=== PATIENT | female | born 1965 | race Caucasian/White ===

== ENCOUNTER 2025-01-22 09:08 | Emergency (ER) | payer BC, SELFPAY ==
[2025-01-22 09:09] VITALS: BP 116/79
--- NOTE | 2025-01-22 09:43 | ED.GENMED ---
Addendum entered and electronically signed by Rey Warner PA-C 01/25/25 06:55:
UCx positive for 100k CFU E coli, sensitivity pending, pt on nitrofurantoin
Original Note:
History of Present Illness
General
Chief Complaint: Abdominal Pain
Source: patient
Exam Limitations: none
Time Seen by Provider: 01/22/25 09:41
Nursing documentation reviewed up to this point in time: agreed with
History of Present Illness
History of Present Illness:
60 yo female w h/o gastric bypass, was on Wagovy for 'months,' DC'd 09/29 due to insurance, started Zepbound 12/28 and has had 3 doses 2.5 mg so far, diverticulitis, hypothyroidism, endometrial biopsy 2 weeks ago (results neg), presents for abdominal
pain. States pain started 3 days ago, LLQ was at its worst 2 a.m. today, 06/08, then she fell back asleep. Now pain /10. Has been nauseous, no vomiting but one episode retching last night. Pain is worse if she sits down hard and during BM. She had
one episode non bloody diarrhea today. Denies fever. Denies vaginal discharge or bleeding
Past History
Past History
ED Past Medical History: Cancer (Melanoma), GERD, Hypothyroidism, Psychiatric (anxiety/depression) and Other (Psoriatic arthritis)
ED Past Surgical History: Orthopedic and Other (Gastric bypass 2002)
Social History
Tobacco: Vaping
Alcohol: Daily (Wine 3 glasses)
Drug: None
Personal:
Living: with family
Employment: Employed
Family History
Family History: Other (Father with GERD); Negative Early CAD
Review of Systems
Review of Systems
Allergies reviewed?: Yes
All Other Systems: ROS reviewed and negative except as documented in HPI and ROS
Constitutional: Denies fever or chills
Respiratory: Denies trouble breathing
Cardiac: Denies chest pain
ABD/GI: Reports abdominal pain, nausea and diarrhea; Denies vomiting, constipated, bloody stools or black stools
: Denies dysuria, frequency, difficulty voiding or urgency
Musculoskeletal: Reports no symptoms
Skin: Reports no symptoms
Phy Exam
Physical Exam
Physical Exam:
GENERAL: No acute distress. A&Ox3.
CONSTITUTIONAL: Afebrile.
EYES: clear, conjunctivae normal
ENMT: moist mucus membranes
RESPIRATORY: Regular respirations, nonlabored, lungs clear.
CARDIOVASCULAR: Regular rate and rhythm, no murmurs, no rubs.
GI: Soft, minimal tenderness LLQ. normal BS
MUSCULOSKELETAL: Moves with ease. Well perfused.
SKIN: Warm, dry, pink
PSYCH: Normal mood and affect. Well kept, interactive and appropriate
NEUROLOGIC: Awake, alert and oriented. No focal neurological deficits
Course
Orders/Labs/Results
Orders:
Orders
01/22/25 09:58
CT Abd/pelvis W Iv Cont Urgent
Comment:
Reason For Exam: LLQ pain
01/22/25 09:59
0.9% Sodium Chloride 1000 ml [Nss] 1,000 ml IV BOLUS
01/22/25 10:06
Complete Blood Count/With Diff Urgent
Comprehensive Metabolic Panel Urgent
Lipase Urgent
01/22/25 12:10
Urinalysis Reflex To Culture Urgent
Date Specimen was Collected: 01/22/25
Time Specimen was Collected: 11:24
Urine Microscopic Reflex Cult Urgent
Urine Culture Urgent
GOYO Source: U
Specimen Description:
Date Specimen was Collected: 01/22/25
Time Specimen was Collected: 11:24
Abnormal Lab Results
01/22/25 01/22/25
10:06 12:10
WBC 4.4 L 10^3/uL
(4.8-10.8)
Urine Nitrite (Reflex) Positive A
(Negative)
Leukocyte Esterase Rfl 3+ A
(Negative)
Urine WBC (Reflex) 16-20 A /HPF
(0-5)
Urine Bacteria (Reflex) Many A
(Negative)
Urine Albumin (Reflex) 1+ A
(Neg - Trace)
01/22/25 10:06
01/22/25 10:06
Vital Signs
Initial and Last Documented VS:
Initial Vital Signs
Temp Pulse Resp BP Pulse Ox
97.9 F 93 16 116/79 98
01/22/25 09:09 01/22/25 09:09 01/22/25 09:09 01/22/25 09:09 01/22/25 09:09
Last Documented Vital Signs
Temp Pulse Resp BP Pulse Ox
97.9 F 92 18 122/74 99
01/22/25 09:09 01/22/25 12:35 01/22/25 12:35 01/22/25 12:35 01/22/25 12:35
MDM/Problems Addressed
Differential Diagnosis Includes:
diverticulitis, UTI, post bx infection
MDM/Problems Addressed:
60 yo female w h/o psoriatic arthritis, gastric bypass, was on Wagovy for 'months,' DC'd 09/29 due to insurance, started Zepbound 12/28 and has had 3 doses 2.5 mg so far, hypothyroidism, anxiety/depression, endometrial biopsy 2 weeks ago (results neg),
presents for abdominal pain. States pain started 3 days ago, LLQ was at its worst 2 a.m. today, 06/08, then she fell back asleep. Now pain 3/10. Has been nauseous, no vomiting but one episode retching last night. Pain is worse if she sits down hard
and during BM. She had one episode non bloody diarrhea today. Denies fever. Denies vaginal discharge or bleeding
Afebrile, NAD
1:00 PM:
CBC normal
CMP normal
Lipase normal
UA: Positive nitrites, 3+ leukocytes, 16-20 WBCs, many bacteria
CT abd/pelvis w IV contrast: radiology report read: IMPRESSION: No acute pathology of the abdomen or pelvis identified. No evidence of acute diverticulitis.
Mild hepatosplenomegaly. Stable
Postsurgical change. Stable
Too small to characterize hypodense hepatic lesions likely small cysts or hemangiomas. Stable
Gallstones. Stable
Mild L2 compression fracture. Stable
Plan: Treat UTI, culture pending
Copy of CT and all labs given to pt.
Rx for nitrofurantoin sent to her pharmacy
*Critical Care Note
Total Time (30-74mins, 75-104mins- exclusive of procedures): Not Applicable
ED Attending Note
-
Portions of this chart may have been created with voice recognition software.� Occasional wrong word or��sound alike� substitutions may have occurred due to the inherent limitations of voice recognition software.
Discharge Plan
Departure
Patient Disposition: Home (Routine Discharge)
Date of Disposition: 01/22/25
Time of Disposition: 13:03
Patient with high blood pressure during this ER visit?: No
Condition: Good
Discharge Problem:
Abdominal pain, UTI (urinary tract infection)
Instructions: Urinary tract infections in adults, Abdominal Pain
Prescriptions:
New
nitrofurantoin macrocrystal 100 mg capsule
100 mg PO BID 7 Days Qty: 14 0RF
No Action
alprazolam 0.5 MG tablet
1 mg PO DAILYPRN PRN (Reason: anxiety)
levothyroxine 150 MCG tablet
See Rx Instructions .ROUTE .COMPLEX
Rx Instructions:
150 mcg orally ;One tablet 6 days a week S,M,T,W,TH,F and / tab 7th day Sat
gabapentin 300 MG capsule
300 mg PO TID
pantoprazole [Protonix] 40 mg tablet,delayed release (DR/EC)
40 mg PO DAILY Qty: 30 0RF
doxycycline hyclate 100 mg capsule
100 mg PO BID Qty: 13 0RF
doxycycline hyclate 100 mg tablet
100 mg PO BID Qty: 14 0RF
albuterol sulfate [ProAir HFA] 90 mcg/actuation Hfa Aerosol Inhaler
1 puff INHALATION Q4HPRN PRN (Reason: shortness of breath) Qty: 8.5 0RF
doxycycline hyclate 100 mg capsule
100 mg PO BID Qty: 14 0RF
prednisone 20 mg tablet
40 mg PO DAILY Qty: 10 0RF
multivitamin Tablet
1 tab PO DAILY
cyanocobalamin (vitamin B-12) 100 mcg Tablet
100 mcg PO DAILY
polyethylene glycol 3350 17 gram Powder In Packet
17 g PO DAILY
sertraline 100 mg Tablet
100 mg PO DAILY
thiamine HCl (vitamin B1) 100 mg Tablet
100 mg PO DAILY
ferrous sulfate 325 mg (65 mg iron) Tablet
325 mg PO BID
Rx Instructions:
With meals
calcium citrate 500 mg Tablet, Effervescent
500 mg PO TID
cholecalciferol (vitamin D3) [Vitamin D3] 25 mcg (1,000 unit) Tablet
25 mcg PO DAILY
levothyroxine 75 mcg Tablet
See Rx Instructions .ROUTE .COMPLEX
Rx Instructions:
Friday 07:00 - 75 mcg orally
oxycodone 5 mg Tablet
5 mg PO Q4HPRN PRN (Reason: 1 tab moderate, 2 tabs severe pain ) Qty: 30 0RF
tramadol 50 mg Tablet
50 mg PO QID Qty: 16 0RF
baclofen 10 mg Tablet
10 mg PO TID PRN (Reason: spasm) Qty: 30 0RF
sennosides [senna] 8.6 mg Tablet
8.6 mg PO DAILY Qty: 30 0RF
enoxaparin 30 mg/0.3 mL Syringe
30 mg SC Q12 Qty: 60 0RF
Referrals:
Mike Plata, DO [Family Provider] - As needed
Activity Restrictions/Additional Instructions:
As we discussed, your urine shows a urinary tract infection.
I sent a prescription to your pharmacy for the antibiotic Macrobid to take twice a day for 7 days.
See your doctor in 10-14 days if your symptoms are not gone by then
Your CAT scan showed nothing worrisome.
Interventions
Interventions:
*Risk Screen - Suicide Last Done: 01/22/25 09:12
*General Assessment Last Done: 01/22/25 10:04
*Neglect/Abuse Screening Last Done: 01/22/25 09:12
*ED- Fall Risk Assessment Last Done: 01/22/25 10:04
*ED COVID-19 Vaccine History Last Done: 01/22/25 10:04
*Nursing Disposition Last Done: 01/22/25 13:11
FB-Tcfazx-Kmmsgjxwmr Assessment Last Done: 01/22/25 09:45
Discharge Date and Time
Discharge Date/Time: 01/22/25 15:52
Print Language: KAZAKH
[2025-01-22 09:56] VITALS: BMI 30.6
[2025-01-22 10:05] VITALS: BP 133/76
[2025-01-22] MEDS: NSS 1000 IV (10:08)
[2025-01-22 10:25] LABS: % Basophils 0.7 % (0-2); % Eosinophils 2.5 % (0-6); % Immature Granulocytes 0.2 % (0-0.5); % Lymphocytes 28.6 % (20.5-51.1); % Monocytes 8.2 % (1.7-9.3); % Neutrophils 59.8 % (42.2-75.2); Absolute Eosinophils 0.1 10^3/uL (0-0.7); Absolute Lymphocytes 1.3 10^3/uL (1.2-3.4); Absolute Monocytes 0.4 10^3/uL (0.1-0.6); Absolute Neutrophils 2.6 10^3/uL (1.4-6.5); Hematocrit 43.5 % (37.0-47.0); Hemoglobin 14.7 g/dL (12.0-16.0); Mean Corp Hgb Conc. 33.8 g/dL (33.0-37.0); Mean Corpuscular Volume 91.8 fL (81.0-99.0); Mean Platelet Volume 9.2 fL (7.4-10.4); Nucleated Red Blood Cells % 0 %; Platelet Count 164 10^3/uL (130-400); Red Blood Cell Count 4.74 10^6/uL (4.20-5.40); Red Cell Dist. Width 13.1 % (11.5-14.5); White Blood Cell Count 4.4 10^3/uL (4.8-10.8)
[2025-01-22 10:33] LABS: ALT (SGPT) 20 U/L (0-35); AST (SGOT) 26 U/L (14-36); Albumin 4.6 g/dl (3.5-5.0); Alkaline Phosphatase 63 U/L (38-126); Blood Urea Nitrogen 13 mg/dl (7-17); Calcium 9.8 mg/dl (8.4-10.2); Carbon Dioxide 27 mmol/L (22-30); Chloride 106 mmol/L (98-107); Estimated Creatinine Clearance 94 ml/min; Glucose 93 mg/dl (70-99); Sodium 143 mmol/L (135-145); Total Bilirubin 0.9 mg/dl (0.2-1.3); Total Protein 7.3 g/dl (6.3-8.2); eGFR > 60.00
[2025-01-22 10:44] LABS: Lipase 128 U/L (23-300)
[2025-01-22 11:00] VITALS: BP 120/77
[2025-01-22 12:25] LABS: Urine Albumin 1+ (Neg - Trace); Urine Bilirubin Negative (Negative); Urine Character Slightly Cloudy (Clear); Urine Color Yellow; Urine Glucose Negative (Negative); Urine Ketone Negative (Negative); Urine Leukocyte 3+ (Negative); Urine Nitrite Positive (Negative); Urine Occult Blood Negative (Negative); Urine Urobilinogen Negative (Neg - 1+)
[2025-01-22 12:35] VITALS: BP 122/74
[2025-01-22 12:48] LABS: Urine Red Blood Cell 0-2 /HPF (0-2)
[2025-01-22 12:49] LABS: Urine Bacteria Many (Negative); Urine White Cell 16-20 /HPF (0-5)
== END 2025-01-22 15:52 | disposition home or self-care (01) ==
LOC: EMR 09:08
PROVIDERS: Registered Nurse; EMERGENCY PHYSICIAN Emergency Medicine; FAMILY PHYSICIAN Family Medicine
DX: N39.0 Urinary tract infection, site not specified (principal); E03.9 Hypothyroidism, unspecified; R10.9 Unspecified abdominal pain; K21.9 Gastro-esophageal reflux disease without esophagitis; F17.290 Nicotine dependence, other tobacco product, uncomplicated; L40.50 Arthropathic psoriasis, unspecified; Z83.79 Family history of other diseases of the digestive system; Z85.820 Personal history of malignant melanoma of skin; Z98.84 Bariatric surgery status
CPT/HCPCS: 99284; 74177; 80053; 81003; 81015; 83690; 85025; 87077; 87086; Q9967

== ENCOUNTER → 2025-05-06 08:00 | Outpatient (REF) | payer BC, SELFPAY | LOC: WDC 08:00 | PROVIDERS: ATTENDING PHYSICIAN Obstetrics & Gynecology; FAMILY PHYSICIAN Family Medicine | DX: Z12.31 Encounter for screening mammogram for malignant neoplasm of breast (principal) | CPT/HCPCS: 77063; 77067 ==

== ENCOUNTER 2025-06-11 11:53 | Emergency (ER) | payer BC, SELFPAY ==
[2025-06-11 11:59] VITALS: BP 138/72
[2025-06-11 12:19] VITALS: BMI 30.8
--- NOTE | 2025-06-11 12:19 | ED.GENMED ---
History of Present Illness
General
Chief Complaint: Musculo-Skeletal Complaint
Time Seen by Provider: 06/11/25 12:09
History of Present Illness
History of Present Illness:
FOCUSED PAST MEDICAL HISTORY
- History of polycythemia, melanoma, anxiety/depression, has had gastric bypass
REVIEW OF OLD RECORDS
- The patient was seen here in the emerge department with abdominal pain this past December
Note:
CHIEF COMPLAINT(S)
- Recent scrape on the lateral right inferior ankle, concern for infection or blood clot.
HISTORY OF PRESENT ILLNESS
The patient is a 60-year-old female with a history of polycythemia vera, who recently underwent therapeutic phlebotomy last week. She reports scraping the lateral aspect of her right inferior ankle and expresses concern about the possibility of a
blood clot or infection due to her medical history. The patient is unsure if any falls occurred after the injury. On physical exam, erythema is noted over the lateral hindfoot, involving the tissue over the lateral malleolus of the right ankle.
CHRONIC MEDICAL CONDITIONS SIGNIFICANTLY AFFECTING CARE
- Polycythemia vera
ALLERGIES
The patient reports multiple allergies but can take doxycycline.
PHYSICAL EXAM
General: Alert, no acute distress.
Skin: Warm, dry, erythema over the lateral hindfoot, involving the tissue over the lateral malleolus of the right ankle. There is also a healing scrape over the tissue inferior to the right lateral malleolus. This is slightly warm and tender to
palpation.
Head: Normocephalic, atraumatic.
Neck: Supple, trachea midline.
Eyes, Ears, Nose, Mouth, and Throat: Oral mucosa moist.
Cardiovascular: Normal peripheral perfusion, No edema.
Respiratory: Respirations are non-labored.
Gastrointestinal: Abdomen nondistended.
Back: Normal range of motion, Normal alignment.
Musculoskeletal: Normal ROM, normal strength.
Neurological: Alert and oriented to person, place, time, and situation, No focal neurological deficit observed.
Psychiatric: Cooperative, appropriate mood & affect.
PLAN
- Perform laboratory testing.
- Obtain an ultrasound of the affected area to rule out blood clot or infection.
DIFFERENTIAL DIAGNOSIS
The Differential Diagnosis includes, in no particular order and is not limited to:
- Cellulitis
- Deep vein thrombosis
- Superficial thrombophlebitis
- Contact dermatitis
- Venous insufficiency
- Lymphedema
- Erysipelas
- Osteomyelitis
- Gout
- Hematoma
RADIOLOGY
- Ultrasound imaging obtained and no DVT noted to the right lower extremity
LABS
- White count 4.1, hemoglobin 10.6, chemistries unremarkable
UPDATE
-SUMMARY OF ENCOUNTER
The patient, a 60-year-old female with a history of polycythemia vera and recent therapeutic phlebotomy, presented with concerns over a scrape on her lateral right inferior ankle. She was worried about the potential for infection or blood clotting
due to her medical history. During the assessment, her hemoglobin levels were in the tens, lower than typical polycythemia vera levels, likely due to recent phlebotomy. The white blood cell count was slightly low, decreasing the likelihood of severe
infection, though infection was not ruled out. An ultrasound ruled out blood clots. Given the erythema observed over the lateral hindfoot and potential cellulitis, likely influenced by the patients immunosuppressant medication, doxycycline
(doxycycline hyclate) was prescribed. The patient was advised on non-pharmacologic measures like icing for inflammation if desired.
DISPOSITION
Discharge.
ASSESSMENT
The patients condition seems consistent with a localized infection, likely cellulitis, given the erythema and scrape, without signs of deep-vein thrombosis.
PLAN
- Prescribe doxycycline for suspected cellulitis.
- Advise the patient to apply ice to the area to reduce inflammation.
- Discharge the patient with follow-up instructions as necessary.
INDEPENDENT REVIEW OF LABS AND INTERPRETATION OF TESTS
My independent review of the lab work shows hemoglobin is in the tens, lower due to recent phlebotomy, and a slightly low white blood cell count, making severe infection less likely.
My independent ultrasound interpretation shows no evidence of a blood clot.
PATIENT EDUCATION AND COUNSELING
The patient was educated about the nature of cellulitis and its connection to skin trauma and immunosuppression. They were advised that icing the area could help with inflammation but wrapping might irritate it further.
FOLLOW-UP INSTRUCTIONS
If symptoms do not improve or worsen, follow-up with primary care or return to the emergency department as necessary.
MEDICATION RECONCILIATION
- Prescribed: Doxycycline (doxycycline hyclate) for suspected cellulitis.
MEDICAL DECISION MAKING
-Complexity of Data Reviewed: Chronic conditions affecting care include polycythemia vera. Differential Diagnosis includes cellulitis, contact dermatitis, superficial thrombophlebitis, venous insufficiency, lymphedema, erysipelas, osteomyelitis,
gout, deep vein thrombosis, and hematoma.
-Data:
Category 1
Lab tests reviewed indicating hemoglobin in the tens and slightly low white blood cell count.
My independent interpretation of the ultrasound indicates no blood clot.
-Risk:
Prescription medication was prescribed: doxycycline for cellulitis. Consideration of Admission/Observation: Escalation of care including admission/observation was considered given the complexity and risk of the patients presenting complaint and exam
findings. However, ultimately I feel the patient is safe for outpatient management with close follow up. Reasoning: Work-up reassuring, does not reveal any acute life/organ-threatening processes, patients symptoms well-controlled upon reevaluation,
reexamination is reassuring, vitals are stable, patient agreeable with discharge, reliable for follow-up.
DIAGNOSIS
- L03.116 Cellulitis of right lower limb
Past History
Past History
ED Past Medical History: Cancer (Melanoma), GERD, Hypothyroidism, Psychiatric (anxiety/depression) and Other (Psoriatic arthritis)
ED Past Surgical History: Orthopedic and Other (Gastric bypass 2002)
Social History
Tobacco: Vaping
Alcohol: Daily (Wine 3 glasses)
Drug: None
Personal:
Living: with family
Employment: Employed
Family History
Family History: Other (Father with GERD); Negative Early CAD
Phy Exam
Physical Exam
Physical Exam:
See HPI
Course
Orders/Labs/Results
Orders:
Orders
06/11/25 12:40
US Periph Venous LOWER Ext RT Urgent
Comment:
Reason For Exam: distal swelling h/o p vera
06/11/25 13:46
Basic Metabolic Panel Urgent
Complete Blood Count/With Diff Urgent
Abnormal Lab Results
06/11/25
13:46
WBC 4.1 L 10^3/uL
(4.8-10.8)
RBC 3.79 L 10^6/uL
(4.20-5.40)
Hgb 10.6 L g/dL
(12.0-16.0)
Hct 33.0 L %
(37.0-47.0)
MCHC 32.1 L g/dL
(33.0-37.0)
RDW 15.3 H %
(11.5-14.5)
Neutrophils % 40.4 L %
(42.2-75.2)
Monocytes % 12.5 H %
(1.7-9.3)
Chloride 110 H mmol/L
(98-107)
Glucose 100 H mg/dl
(70-99)
06/11/25 13:46
06/11/25 13:46
Vital Signs
Initial and Last Documented VS:
Initial Vital Signs
Temp Pulse Resp BP Pulse Ox
37.4 C 90 18 138/72 99
06/11/25 11:59 06/11/25 11:59 06/11/25 11:59 06/11/25 11:59 06/11/25 11:59
Last Documented Vital Signs
Temp Pulse Resp BP Pulse Ox
37.4 C 90 18 138/72 99
06/11/25 11:59 06/11/25 11:59 06/11/25 11:59 06/11/25 11:59 06/11/25 12:20
*Pulse Oximetry
SaO2: 99
Oxygen Mode of Delivery: Room air
Patient hypoxic: no
*Critical Care Note
Total Time (30-74mins, 75-104mins- exclusive of procedures): Not Applicable
ED Attending Note
-
Portions of this chart may have been created with voice recognition software.� Occasional wrong word or��sound alike� substitutions may have occurred due to the inherent limitations of voice recognition software.
Discharge Plan
Departure
Prescriptions:
No Action
alprazolam 0.5 MG tablet
1 mg PO DAILYPRN PRN (Reason: anxiety)
levothyroxine 150 MCG tablet
See Rx Instructions .ROUTE .COMPLEX
Rx Instructions:
150 mcg orally ;One tablet 6 days a week S,M,T,W,TH,F and 1/2 tab 7th day Sat
gabapentin 300 MG capsule
300 mg PO TID
pantoprazole [Protonix] 40 mg tablet,delayed release (DR/EC)
40 mg PO DAILY Qty: 30 0RF
doxycycline hyclate 100 mg capsule
100 mg PO BID Qty: 13 0RF
doxycycline hyclate 100 mg tablet
100 mg PO BID Qty: 14 0RF
albuterol sulfate [ProAir HFA] 90 mcg/actuation Hfa Aerosol Inhaler
1 puff INHALATION Q4HPRN PRN (Reason: shortness of breath) Qty: 8.5 0RF
doxycycline hyclate 100 mg capsule
100 mg PO BID Qty: 14 0RF
prednisone 20 mg tablet
40 mg PO DAILY Qty: 10 0RF
nitrofurantoin macrocrystal 100 mg capsule
100 mg PO BID 7 Days Qty: 14 0RF
multivitamin Tablet
1 tab PO DAILY
cyanocobalamin (vitamin B-12) 100 mcg Tablet
100 mcg PO DAILY
polyethylene glycol 3350 17 gram Powder In Packet
17 g PO DAILY
sertraline 100 mg Tablet
100 mg PO DAILY
thiamine HCl (vitamin B1) 100 mg Tablet
100 mg PO DAILY
ferrous sulfate 325 mg (65 mg iron) Tablet
325 mg PO BID
Rx Instructions:
With meals
calcium citrate 500 mg Tablet, Effervescent
500 mg PO TID
cholecalciferol (vitamin D3) [Vitamin D3] 25 mcg (1,000 unit) Tablet
25 mcg PO DAILY
levothyroxine 75 mcg Tablet
See Rx Instructions .ROUTE .COMPLEX
Rx Instructions:
Friday 07:00 - 75 mcg orally
oxycodone 5 mg Tablet
5 mg PO Q4HPRN PRN (Reason: 1 tab moderate, 2 tabs severe pain ) Qty: 30 0RF
tramadol 50 mg Tablet
50 mg PO QID Qty: 16 0RF
baclofen 10 mg Tablet
10 mg PO TID PRN (Reason: spasm) Qty: 30 0RF
sennosides [senna] 8.6 mg Tablet
8.6 mg PO DAILY Qty: 30 0RF
enoxaparin 30 mg/0.3 mL Syringe
30 mg SC Q12 Qty: 60 0RF
Referrals:
Mike Plata DO [Family Provider, Family Practice]
Interventions
Interventions:
*Risk Screen - Suicide Last Done: 06/11/25 11:59
*General Assessment Last Done: 06/11/25 12:19
*Neglect/Abuse Screening Last Done: 06/11/25 11:59
*ED- Fall Risk Assessment Last Done: 06/11/25 12:19
*ED COVID-19 Vaccine History Last Done: 06/11/25 12:19
ED-Musculoskeletal Assessment Last Done: 06/11/25 12:19
Discharge Date and Time
Print Language: ANGUILLAN
--- NOTE | 2025-06-11 12:35 | EDRN ---
Dr. Jara in room w/ pt.
[2025-06-11 13:45] VITALS: BP 129/68
[2025-06-11 13:55] LABS: Hematocrit 33.0 % (37.0-47.0); Hemoglobin 10.6 g/dL (12.0-16.0); Mean Corp Hgb Conc. 32.1 g/dL (33.0-37.0); Mean Corpuscular Volume 87.1 fL (81.0-99.0); Nucleated Red Blood Cells % 0 %; Platelet Count 181 10^3/uL (130-400); Red Cell Dist. Width 15.3 % (11.5-14.5)
[2025-06-11 14:08] LABS: Blood Urea Nitrogen 13 mg/dl (7-17); Calcium 9.4 mg/dl (8.4-10.2); Carbon Dioxide 25 mmol/L (22-30); Chloride 110 mmol/L (98-107); Estimated Creatinine Clearance 107 ml/min; Glucose 100 mg/dl (70-99); Potassium 4.0 mmol/L (3.5-5.1); Sodium 138 mmol/L (135-145); eGFR > 60.00
== END 2025-06-11 15:10 | disposition home or self-care (01) ==
LOC: EMR 11:53
PROVIDERS: EMERGENCY PHYSICIAN Emergency Medicine; FAMILY PHYSICIAN Family Medicine
DX: L03.115 Cellulitis of right lower limb (principal); D45 Polycythemia vera; E03.9 Hypothyroidism, unspecified; F17.290 Nicotine dependence, other tobacco product, uncomplicated; Z98.84 Bariatric surgery status
CPT/HCPCS: 99284; 80048; 85025; 93971

== ENCOUNTER 2025-08-24 10:02 | Emergency (ER) | payer BC, SELFPAY ==
[2025-08-24 10:08] VITALS: BP 151/107
[2025-08-24 10:34] LABS: Hematocrit 41.2 % (37.0-47.0); Hemoglobin 12.6 g/dL (12.0-16.0); Mean Corp Hgb Conc. 30.6 g/dL (33.0-37.0); Mean Corpuscular Volume 78.8 fL (81.0-99.0); Nucleated Red Blood Cells % 0 %; Platelet Count 195 10^3/uL (130-400); Red Cell Dist. Width 16.2 % (11.5-14.5)
[2025-08-24 10:51] LABS: ALT (SGPT) 21 U/L (0-35); AST (SGOT) 35 U/L (14-36); Albumin 4.8 g/dl (3.5-5.0); Alkaline Phosphatase 86 U/L (38-126); Blood Urea Nitrogen 16 mg/dl (7-17); Calcium 10.0 mg/dl (8.4-10.2); Carbon Dioxide 27 mmol/L (22-30); Chloride 101 mmol/L (98-107); Glucose 120 mg/dl (70-99); Lipase 224 U/L (23-300); Potassium 5.1 mmol/L (3.5-5.1); Sodium 135 mmol/L (135-145); Total Protein 8.2 g/dl (6.3-8.2); eGFR > 60.00
[2025-08-24 11:14] VITALS: BP 135/74
[2025-08-24 11:26] VITALS: BMI 32.4
[2025-08-24 12:12] VITALS: BP 122/65
[2025-08-24] MEDS: OMNIPAQUE 50 ML PO (12:37)
[2025-08-24 13:04] LABS: Urine Character Clear (Clear)
--- NOTE | 2025-08-24 13:11 | ED.GENMED ---
History of Present Illness
General
Chief Complaint: Abdominal Pain
Source: patient and spouse
Exam Limitations: none
Time Seen by Provider: 08/24/25 11:38
Nursing documentation reviewed up to this point in time: agreed with
History of Present Illness
History of Present Illness:
60-year-old female past medical history of previous gastric bypass, hemangioma of liver presenting to the emergency department today with concerns of right lower quadrant abdominal pain over the past few days associated nausea and some loose bowel
movements. Has any chest pain shortness of breath or lightheadedness.
Past History
Past History
ED Past Medical History: Cancer (Melanoma), GERD, Hypothyroidism, Psychiatric (anxiety/depression) and Other (Psoriatic arthritis)
ED Past Surgical History: Orthopedic and Other (Gastric bypass 2002)
Social History
Tobacco: Vaping
Alcohol: Daily (Wine 3 glasses)
Drug: None
Personal:
Living: with family
Employment: Employed
Family History
Family History: Other (Father with GERD); Negative Early CAD
Review of Systems
Review of Systems
Allergies reviewed?: Yes
All Other Systems: ROS reviewed and negative except as documented in HPI and ROS
Phy Exam
Physical Exam
Physical Exam:
GENERAL: Alert , in no apparent distress
EYE: pupils equal and reactive
NECK: Supple, no significant adenopathy.
ENT: o/p clr, mmm.
CARDIAC: Regular rate and rhythm .
LUNGS: Clear breath sounds bilaterally, no acute respiratory distress, no wheezes/rales/rhonchi
ABDOMEN: Right lower quadrant abdominal pain otherwise nonperitoneal no guarding, remainder the abdomen soft, without focal tenderness, no r/g, no cvat
NEUROLOGICAL: Alert and oriented, no focal neuro deficits
SKIN: Warm and dry, skin intact.
MUSCULOSKELETAL: No edema, well perfused.
PSYCH: Normal and appropriate interaction.
Course
Orders/Labs/Results
Orders:
Orders
08/24/25 10:26
Complete Blood Count/With Diff Urgent
Comprehensive Metabolic Panel Urgent
Lipase Urgent
Urine Culture Urgent
GOYO Source: U
Specimen Description:
Date Specimen was Collected: 08/24/25
Time Specimen was Collected: 10:12
08/24/25 12:19
CT Abd/pel W Iv And Oral Contr Urgent
Comment:
Reason For Exam: lower abd rizo, hx of gastric bypass
Iohexol [Omnipaque] See Protocol PO NOW STA
08/24/25 12:40
Urinalysis Urgent
Urine Microscopic Urgent
08/24/25 16:13
Dicyclomine [Bentyl] 20 mg PO NOW STA
Ondansetron Injectable [Zofran] 4 mg IV NOW STA
Abnormal Lab Results
08/24/25 08/24/25
10 12:40
MCV 78.8 L fL
(81.0-99.0)
MCH 24.1 L pg
(27.0-31.0)
MCHC 30.6 L g/dL
(33.0-37.0)
RDW 16.2 H %
(11.5-14.5)
Monocytes % 10.4 H %
(1.7-9.3)
Glucose 120 H mg/dl
(70-99)
Ur Leukocyte Esterase 3+ A
(Negative)
Urine RBC 7-10 A /HPF
(0-2)
Urine WBC 16-20 A /HPF
(0-5)
Urine Bacteria Many A
(Negative)
Urine Albumin 2+ A
(Neg - Trace)
08/24/25 10:26
08/24/25 10:26
Vital Signs
Initial and Last Documented VS:
Initial Vital Signs
Temp Pulse Resp BP Pulse Ox
99.4 F 90 20 151/107 99
08/24/25 10:08 08/24/25 10:08 08/24/25 10:08 08/24/25 10:08 08/24/25 10:08
Last Documented Vital Signs
Temp Pulse Resp BP Pulse Ox
98.3 F 76 18 137/88 100
08/24/25 13:13 08/24/25 15:00 08/24/25 15:00 08/24/25 15:11 08/24/25 15:10
MDM/Problems Addressed
MDM/Problems Addressed:
60-year-old female presenting to the emergency department with right lower quadrant [place] worsening over the past few days associated nausea and some loose and bowel movements. Reproducible to [place] on the right side. Vital signs
normal on arrival no white count, CT scan ordered and resulted without any acute abnormalities labs unremarkable urine not consistent with UTI patient given symptomatic medications and advised for close outpatient follow-up. Return precautions
given.
*Pulse Oximetry
SaO2: 97
Oxygen Mode of Delivery: Room air
Patient hypoxic: no (100)
*Critical Care Note
Total Time (30-74mins, 75-104mins- exclusive of procedures): Not Applicable
ED Attending Note
-
Portions of this chart may have been created with voice recognition software.� Occasional wrong word or��sound alike� substitutions may have occurred due to the inherent limitations of voice recognition software.
Discharge Plan
Departure
Patient with high blood pressure during this ER visit?: No
Condition: Good
Covid-19: Not Applicable
Discharge Problem:
Abdominal pain
Instructions: Abdominal Pain
Prescriptions:
New
dicyclomine 20 mg tablet
20 mg PO QID PRN (Reason: abdominal pain) Qty: 10 0RF
ondansetron 4 mg tablet,disintegrating
4 mg PO Q6H PRN (Reason: nausea and vomiting) Qty: 7 0RF
No Action
alprazolam 0.5 MG tablet
1 mg PO DAILYPRN PRN (Reason: anxiety)
levothyroxine 150 MCG tablet
See Rx Instructions .ROUTE .COMPLEX
Rx Instructions:
150 mcg orally ;One tablet 6 days a week S,M,T,W,TH,F and 1/2 tab 7th day Sat
gabapentin 300 MG capsule
300 mg PO TID
pantoprazole [Protonix] 40 mg tablet,delayed release (DR/EC)
40 mg PO DAILY Qty: 30 0RF
doxycycline hyclate 100 mg capsule
100 mg PO BID Qty: 13 0RF
doxycycline hyclate 100 mg tablet
100 mg PO BID Qty: 14 0RF
albuterol sulfate [ProAir HFA] 90 mcg/actuation Hfa Aerosol Inhaler
1 puff INHALATION Q4HPRN PRN (Reason: shortness of breath) Qty: 8.5 0RF
doxycycline hyclate 100 mg capsule
100 mg PO BID Qty: 14 0RF
prednisone 20 mg tablet
40 mg PO DAILY Qty: 10 0RF
nitrofurantoin macrocrystal 100 mg capsule
100 mg PO BID 7 Days Qty: 14 0RF
doxycycline monohydrate 100 mg tablet
100 mg PO BID Qty: 14 0RF
multivitamin Tablet
1 tab PO DAILY
cyanocobalamin (vitamin B-12) 100 mcg Tablet
100 mcg PO DAILY
polyethylene glycol 3350 17 gram Powder In Packet
17 g PO DAILY
sertraline 100 mg Tablet
100 mg PO DAILY
thiamine HCl (vitamin B1) 100 mg Tablet
100 mg PO DAILY
ferrous sulfate 325 mg (65 mg iron) Tablet
325 mg PO BID
Rx Instructions:
With meals
calcium citrate 500 mg Tablet, Effervescent
500 mg PO TID
cholecalciferol (vitamin D3) [Vitamin D3] 25 mcg (1,000 unit) Tablet
25 mcg PO DAILY
levothyroxine 75 mcg Tablet
See Rx Instructions .ROUTE .COMPLEX
Rx Instructions:
Friday 07:00 - 75 mcg orally
oxycodone 5 mg Tablet
5 mg PO Q4HPRN PRN (Reason: 1 tab moderate, 2 tabs severe pain ) Qty: 30 0RF
tramadol 50 mg Tablet
50 mg PO QID Qty: 16 0RF
baclofen 10 mg Tablet
10 mg PO TID PRN (Reason: spasm) Qty: 30 0RF
sennosides [senna] 8.6 mg Tablet
8.6 mg PO DAILY Qty: 30 0RF
enoxaparin 30 mg/0.3 mL Syringe
30 mg SC Q12 Qty: 60 0RF
Referrals:
Mike Plata DO [Family Provider, Family Practice]
Activity Restrictions/Additional Instructions:
You came to the emergency department today with concerns of abdominal pain. Here you have a reassuring assessment. Please follow closely with your outpatient doctors. Return for any worsening, new or concerning symptoms.
Interventions
Interventions:
*Risk Screen - Suicide Last Done: 08/24/25 11:24
*General Assessment Last Done: 08/24/25 10:08
*Neglect/Abuse Screening Last Done: 08/24/25 11:22
*ED- Fall Risk Assessment Last Done: 08/24/25 11:20
*ED COVID-19 Vaccine History Last Done: 08/24/25 11:20
*ED Influenza Vaccine History Last Done: 08/24/25 11:20
UT-Mwvnnu-Mligjuncvp Assessment Last Done: 08/24/25 15:48
Discharge Date and Time
Print Language: PERUVIAN
[2025-08-24 13:14] LABS: Urine Squamous Cell >30 /LPF (Few)
[2025-08-24 13:17] LABS: Urine White Cell 16-20 /HPF (0-5)
[2025-08-24 13:39] VITALS: BP 131/83
[2025-08-24 14:00] VITALS: BP 147/95
[2025-08-24 15:11] VITALS: BP 137/88
[2025-08-24] MEDS: BENTYL 20 MG PO (16:33)
[2025-08-24] MEDS: ZOFRAN 4 MG IV (16:45)
--- NOTE | 2025-08-24 17:46 | ED.GENMED ---
History of Present Illness
General
Chief Complaint: Abdominal Pain
Time Seen by Provider: 08/24/25 11:38
Past History
Past History
ED Past Medical History: Cancer (Melanoma), GERD, Hypothyroidism, Psychiatric (anxiety/depression) and Other (Psoriatic arthritis)
ED Past Surgical History: Orthopedic and Other (Gastric bypass 2002)
Social History
Tobacco: Vaping
Alcohol: Daily (Wine 3 glasses)
Drug: None
Personal:
Living: with family
Employment: Employed
Family History
Family History: Other (Father with GERD); Negative Early CAD
Course
Orders/Labs/Results
Orders:
Orders
08/24/25 10:26
Complete Blood Count/With Diff Urgent
Comprehensive Metabolic Panel Urgent
Lipase Urgent
Urine Culture Urgent
GOYO Source: U
Specimen Description:
Date Specimen was Collected: 08/24/25
Time Specimen was Collected: 10:12
08/24/25 12:19
CT Abd/pel W Iv And Oral Contr Urgent
Comment:
Reason For Exam: lower abd rizo, hx of gastric bypass
Iohexol [Omnipaque] See Protocol PO NOW STA
08/24/25 12:40
Urinalysis Urgent
Urine Microscopic Urgent
08/24/25 16:13
Dicyclomine [Bentyl] 20 mg PO NOW STA
Ondansetron Injectable [Zofran] 4 mg IV NOW STA
Abnormal Lab Results
08/24/25 08/24/25
10:26 12:40
MCV 78.8 L fL
(81.0-99.0)
MCH 24.1 L pg
(27.0-31.0)
MCHC 30.6 L g/dL
(33.0-37.0)
RDW 16.2 H %
(11.5-14.5)
Monocytes % 10.4 H %
(1.7-9.3)
Glucose 120 H mg/dl
(70-99)
Ur Leukocyte Esterase 3+ A
(Negative)
Urine RBC 7-10 A /HPF
(0-2)
Urine WBC 16-20 A /HPF
(0-5)
Urine Bacteria Many A
(Negative)
Urine Albumin 2+ A
(Neg - Trace)
08/24/25 10:26
08/24/25 10:26
Vital Signs
Initial and Last Documented VS:
Initial Vital Signs
Temp Pulse Resp BP Pulse Ox
99.4 F 90 20 151/107 99
08/24/25 10:08 08/24/25 10:08 08/24/25 10:08 08/24/25 10:08 08/24/25 10:08
Last Documented Vital Signs
Temp Pulse Resp BP Pulse Ox
98.3 F 76 18 137/88 100
08/24/25 13:13 08/24/25 15:00 08/24/25 15:00 08/24/25 15:11 08/24/25 15:10
*Pulse Oximetry
SaO2: 100
Oxygen Mode of Delivery: Room air
ED Attending Note
-
Portions of this chart may have been created with voice recognition software.� Occasional wrong word or��sound alike� substitutions may have occurred due to the inherent limitations of voice recognition software.
Discharge Plan
Departure
Patient Disposition: Home (Routine Discharge)
Date of Disposition: 08/24/25
Time of Disposition: 17:46
Patient with high blood pressure during this ER visit?: No
Condition: Good
Covid-19: Not Applicable
Discharge Problem:
Abdominal pain
Instructions: Abdominal Pain
Prescriptions:
New
dicyclomine 20 mg tablet
20 mg PO QID PRN (Reason: abdominal pain) Qty: 10 0RF
ondansetron 4 mg tablet,disintegrating
4 mg PO Q6H PRN (Reason: nausea and vomiting) Qty: 7 0RF
No Action
alprazolam 0.5 MG tablet
1 mg PO DAILYPRN PRN (Reason: anxiety)
levothyroxine 150 MCG tablet
See Rx Instructions .ROUTE .COMPLEX
Rx Instructions:
150 mcg orally ;One tablet 6 days a week S,M,T,W,TH,F and / tab 7th day Sat
gabapentin 300 MG capsule
300 mg PO TID
pantoprazole [Protonix] 40 mg tablet,delayed release (DR/EC)
40 mg PO DAILY Qty: 30 0RF
doxycycline hyclate 100 mg capsule
100 mg PO BID Qty: 13 0RF
doxycycline hyclate 100 mg tablet
100 mg PO BID Qty: 14 0RF
albuterol sulfate [ProAir HFA] 90 mcg/actuation Hfa Aerosol Inhaler
1 puff INHALATION Q4HPRN PRN (Reason: shortness of breath) Qty: 8.5 0RF
doxycycline hyclate 100 mg capsule
100 mg PO BID Qty: 14 0RF
prednisone 20 mg tablet
40 mg PO DAILY Qty: 10 0RF
nitrofurantoin macrocrystal 100 mg capsule
100 mg PO BID 7 Days Qty: 14 0RF
doxycycline monohydrate 100 mg tablet
100 mg PO BID Qty: 14 0RF
multivitamin Tablet
1 tab PO DAILY
cyanocobalamin (vitamin B-12) 100 mcg Tablet
100 mcg PO DAILY
polyethylene glycol 3350 17 gram Powder In Packet
17 g PO DAILY
sertraline 100 mg Tablet
100 mg PO DAILY
thiamine HCl (vitamin B1) 100 mg Tablet
100 mg PO DAILY
ferrous sulfate 325 mg (65 mg iron) Tablet
325 mg PO BID
Rx Instructions:
With meals
calcium citrate 500 mg Tablet, Effervescent
500 mg PO TID
cholecalciferol (vitamin D3) [Vitamin D3] 25 mcg (1,000 unit) Tablet
25 mcg PO DAILY
levothyroxine 75 mcg Tablet
See Rx Instructions .ROUTE .COMPLEX
Rx Instructions:
Friday 07:00 - 75 mcg orally
oxycodone 5 mg Tablet
5 mg PO Q4HPRN PRN (Reason: 1 tab moderate, 2 tabs severe pain ) Qty: 30 0RF
tramadol 50 mg Tablet
50 mg PO QID Qty: 16 0RF
baclofen 10 mg Tablet
10 mg PO TID PRN (Reason: spasm) Qty: 30 0RF
sennosides [senna] 8.6 mg Tablet
8.6 mg PO DAILY Qty: 30 0RF
enoxaparin 30 mg/0.3 mL Syringe
30 mg SC Q12 Qty: 60 0RF
Referrals:
Mike Plata DO [Family Provider, Family Practice]
Activity Restrictions/Additional Instructions:
You came to the emergency department today with concerns of abdominal pain. Here you have a reassuring assessment. Please follow closely with your outpatient doctors. Return for any worsening, new or concerning symptoms.
Interventions
Interventions:
*Risk Screen - Suicide Last Done: 08/24/25 11:24
*General Assessment Last Done: 08/24/25 10:08
*Neglect/Abuse Screening Last Done: 08/24/25 11:22
*ED- Fall Risk Assessment Last Done: 08/24/25 11:20
*ED COVID-19 Vaccine History Last Done: 08/24/25 11:20
*ED Influenza Vaccine History Last Done: 08/24/25 11:20
JA-Bimnvw-Fnibnsygwb Assessment Last Done: 08/24/25 15:48
Discharge Date and Time
Print Language: [place]
== END 2025-08-24 18:15 | disposition home or self-care (01) ==
LOC: EMR 10:02
PROVIDERS: EMERGENCY PHYSICIAN Emergency Medicine; FAMILY PHYSICIAN Family Medicine
DX: R10.31 Right lower quadrant pain (principal); E03.9 Hypothyroidism, unspecified; K21.9 Gastro-esophageal reflux disease without esophagitis; F41.9 Anxiety disorder, unspecified; F32.A Depression, unspecified; L40.50 Arthropathic psoriasis, unspecified; F17.290 Nicotine dependence, other tobacco product, uncomplicated; Z98.84 Bariatric surgery status; Z85.820 Personal history of malignant melanoma of skin; Z83.79 Family history of other diseases of the digestive system
CPT/HCPCS: 99284; 96374; 74177; 80053; 81003; 81015; 83690; 85025; 87077; 87086; 87186; Q9967

== ENCOUNTER 2025-09-03 10:53 | Emergency (ER) | payer BC, SELFPAY ==
[2025-09-03 10:55] VITALS: BP 156/87
--- NOTE | 2025-09-03 11:15 | EDRN ---
Dr. Zaldivar in room w/ pt at this time.
--- NOTE | 2025-09-03 11:18 | ED.GENMED ---
History of Present Illness
General
Chief Complaint: Abdominal Pain
Time Seen by Provider: 09/03/25 11:09
History of Present Illness
History of Present Illness:
Patient presents to the emergency department with right lower quadrant abdominal pain. Symptoms have been ongoing since she was last seen in the emergency department on 1125. She reports pain waxes and wanes but is always present. There is no
exacerbating factor that she has identified. Over the past day she has developed some vaginal spotting which is atypical for her as she is in menopause. She does report that she is on hormonal therapy and has had uterine bleeding in the past year.
She had a endometrial biopsy which was negative but did reveal possible polyp. Denies fevers or chills. Denies urinary symptoms, though she was treated for UTI last time she was here.
Past History
Past History
ED Past Medical History: Cancer (Melanoma), GERD, Hypothyroidism, Psychiatric (anxiety/depression) and Other (Psoriatic arthritis)
ED Past Surgical History: Orthopedic and Other (Gastric bypass 2002)
Social History
Tobacco: Vaping
Alcohol: Daily (Wine 3 glasses)
Drug: None
Personal:
Living: with family
Employment: Employed
Family History
Family History: Other (Father with GERD); Negative Early CAD
Phy Exam
Physical Exam
Physical Exam:
GENERAL APPEARANCE: NAD, well developed/ well nourished
EYES lids/conjunctiva normal
EARS/NOSE/THROAT Mucous membranes moist, uvula midline without oral pharyngeal erythema, exudate or swelling
HEAD/NECK normocephalic atraumatic, neck is supple.
RESPIRATORY respiratory effort normal, speaks in full sentences, no accessory muscle use. Lungs clear to auscultation without rhonchi, wheezes, rales
CARDIAC Regular rate and rhythm, no edema.
ABDOMINAL mild tenderness to deep palpation in the right deep lower abdomen/pelvic region. Abdomen is soft and nondistended. No peritoneal signs.
MUSCLES/EXTREMITIES No abnormal range of motion, no swelling.
SKIN Warm, pink and dry. No rashes
NEUROLOGICAL Speech is clear and appropriate. Normal level of consciousness. 5/5 strength in all extremities.
PSYCH Normal mood and affect. Judgement/competence is appropriate
Course
Orders/Labs/Results
Orders:
Orders
09/03/25 11:17
0.9% Sodium Chloride 1000 ml [Nss] 1,000 ml IV BOLUS
US Pelvis W Transvag Combined Urgent
Reason For Exam: R pelvic pain, vaginal bleeding
09/03/25 11:56
Complete Blood Count/With Diff Urgent
Comprehensive Metabolic Panel Urgent
09/03/25 14:39
Urinalysis Reflex To Culture Urgent
Date Specimen was Collected: 09/03/25
Time Specimen was Collected: 14:37
Urine Microscopic Reflex Cult Urgent
Abnormal Lab Results
09/03/25 09/03/25
11:56 14:39
WBC 3.0 L 10^3/uL
(4.8-10.8)
Hgb 10.5 L g/dL
(12.0-16.0)
Hct 34.0 L %
(37.0-47.0)
MCV 76.2 L fL
(81.0-99.0)
MCH 23.5 L pg
(27.0-31.0)
MCHC 30.9 L g/dL
(33.0-37.0)
RDW 18.0 H %
(11.5-14.5)
Absolute Lymphs (auto) 1.0 L 10^3/uL
(1.2-3.4)
Immature Gran % 0.7 H %
(0-0.5)
Monocytes % 13.0 H %
(1.7-9.3)
Ur Occult Blood Reflex 4+ A
(Negative)
09/03/25 11:56
09/03/25 11:56
Vital Signs
Initial and Last Documented VS:
Initial Vital Signs
Temp Pulse Resp BP Pulse Ox
98.6 F 90 16 156/87 99
09/03/25 10:55 09/03/25 10:55 09/03/25 10:55 09/03/25 10:55 09/03/25 10:55
Last Documented Vital Signs
Temp Pulse Resp BP Pulse Ox
98.6 F 78 18 133/87 96
09/03/25 10:55 09/03/25 14:57 09/03/25 14:57 09/03/25 14:43 09/03/25 14:57
*Pulse Oximetry
SaO2: 99
Oxygen Mode of Delivery: Room air
Patient hypoxic: no
*Critical Care Note
Total Time (30-74mins, 75-104mins- exclusive of procedures): Not Applicable
ED Attending Note
ED Attending Note
ED Attending Note:
Patient is nontoxic-appearing. She presented with weeks of right lower quadrant pain deep in the right pelvis. Had a recent CT scan that was negative. Ultrasound showing fibroid uterus which is likely the source of her symptoms. She does have
follow-up with the infrastructure tech.
-
Portions of this chart may have been created with voice recognition software.� Occasional wrong word or��sound alike� substitutions may have occurred due to the inherent limitations of voice recognition software.
Discharge Plan
Departure
Patient Disposition: Home (Routine Discharge)
Date of Disposition: 09/03/25
Time of Disposition: 15:21
Patient with high blood pressure during this ER visit?: Yes
Discharge Problem:
Fibroid, Anovulatory (dysfunctional uterine) bleeding
Instructions: Uterine Fibroids (DC)
Prescriptions:
No Action
alprazolam 0.5 MG tablet
1 mg PO DAILYPRN PRN (Reason: anxiety)
levothyroxine 150 MCG tablet
See Rx Instructions .ROUTE .COMPLEX
Rx Instructions:
150 mcg orally ;One tablet 6 days a week S,M,T,W,TH,F and 1/2 tab 7th day Sat
gabapentin 300 MG capsule
300 mg PO TID
pantoprazole [Protonix] 40 mg tablet,delayed release (DR/EC)
40 mg PO DAILY Qty: 30 0RF
doxycycline hyclate 100 mg capsule
100 mg PO BID Qty: 13 0RF
doxycycline hyclate 100 mg tablet
100 mg PO BID Qty: 14 0RF
albuterol sulfate [ProAir HFA] 90 mcg/actuation Hfa Aerosol Inhaler
1 puff INHALATION Q4HPRN PRN (Reason: shortness of breath) Qty: 8.5 0RF
doxycycline hyclate 100 mg capsule
100 mg PO BID Qty: 14 0RF
prednisone 20 mg tablet
40 mg PO DAILY Qty: 10 0RF
nitrofurantoin macrocrystal 100 mg capsule
100 mg PO BID 7 Days Qty: 14 0RF
doxycycline monohydrate 100 mg tablet
100 mg PO BID Qty: 14 0RF
dicyclomine 20 mg tablet
20 mg PO QID PRN (Reason: abdominal pain) Qty: 10 0RF
ondansetron 4 mg tablet,disintegrating
4 mg PO Q6H PRN (Reason: nausea and vomiting) Qty: 7 0RF
sulfamethoxazole-trimethoprim [Bactrim DS] 800-160 mg tablet
1 tab PO BID 7 Days Qty: 14 0RF
multivitamin Tablet
1 tab PO DAILY
cyanocobalamin (vitamin B-12) 100 mcg Tablet
100 mcg PO DAILY
polyethylene glycol 3350 17 gram Powder In Packet
17 g PO DAILY
sertraline 100 mg Tablet
100 mg PO DAILY
thiamine HCl (vitamin B1) 100 mg Tablet
100 mg PO DAILY
ferrous sulfate 325 mg (65 mg iron) Tablet
325 mg PO BID
Rx Instructions:
With meals
calcium citrate 500 mg Tablet, Effervescent
500 mg PO TID
cholecalciferol (vitamin D3) [Vitamin D3] 25 mcg (1,000 unit) Tablet
25 mcg PO DAILY
levothyroxine 75 mcg Tablet
See Rx Instructions .ROUTE .COMPLEX
Rx Instructions:
Friday 07:00 - 75 mcg orally
oxycodone 5 mg Tablet
5 mg PO Q4HPRN PRN (Reason: 1 tab moderate, 2 tabs severe pain ) Qty: 30 0RF
tramadol 50 mg Tablet
50 mg PO QID Qty: 16 0RF
baclofen 10 mg Tablet
10 mg PO TID PRN (Reason: spasm) Qty: 30 0RF
sennosides [senna] 8.6 mg Tablet
8.6 mg PO DAILY Qty: 30 0RF
enoxaparin 30 mg/0.3 mL Syringe
30 mg SC Q12 Qty: 60 0RF
Referrals:
UNKNOWN - PT DOES,NOT KNOW [Family Provider]
Interventions
Interventions:
*Risk Screen - Suicide Last Done: 09/03/25 11:57
*General Assessment Last Done: 09/03/25 11:57
*Neglect/Abuse Screening Last Done: 09/03/25 11:57
*ED COVID-19 Vaccine History Last Done: 09/03/25 11:57
*ED Influenza Vaccine History Last Done: 09/03/25 11:57
[facility] [place] Fall Risk Assessment Tool Last Done: 09/03/25 11:57
FG-[id number]-[id number] Assessment Last Done: 09/03/25 11:57
Discharge Date and Time
Print Language: MOHAWK
[2025-09-03] MEDS: NSS 1000 IV (11:50)
[2025-09-03 11:57] VITALS: BMI 32.4
[2025-09-03 12:02] VITALS: BP 137/78
[2025-09-03 12:30] LABS: Hematocrit 34.0 % (37.0-47.0); Hemoglobin 10.5 g/dL (12.0-16.0); Mean Corp Hgb Conc. 30.9 g/dL (33.0-37.0); Mean Corpuscular Volume 76.2 fL (81.0-99.0); Nucleated Red Blood Cells % 0 %; Platelet Count 154 10^3/uL (130-400); Red Cell Dist. Width 18.0 % (11.5-14.5)
[2025-09-03 12:47] LABS: ALT (SGPT) 16 U/L (0-35); AST (SGOT) 26 U/L (14-36); Albumin 4.3 g/dl (3.5-5.0); Alkaline Phosphatase 63 U/L (38-126); Blood Urea Nitrogen 16 mg/dl (7-17); Calcium 9.1 mg/dl (8.4-10.2); Carbon Dioxide 24 mmol/L (22-30); Chloride 106 mmol/L (98-107); Estimated Creatinine Clearance 110 ml/min; Glucose 84 mg/dl (70-99); Potassium 4.6 mmol/L (3.5-5.1); Sodium 135 mmol/L (135-145); Total Protein 7.4 g/dl (6.3-8.2); eGFR > 60.00
[2025-09-03 13:00] VITALS: BP 136/84
[2025-09-03 14:43] VITALS: BP 133/87
[2025-09-03 15:00] VITALS: BP 139/81
[2025-09-03 15:09] LABS: Urine Character Clear (Clear)
[2025-09-03 15:56] LABS: Urine Squamous Cell >30 /LPF (Few); Urine White Cell 0-2 /HPF (0-5)
== END 2025-09-03 15:35 | disposition home or self-care (01) ==
LOC: EMR 10:53
PROVIDERS: EMERGENCY PHYSICIAN Emergency Medicine
DX: D25.9 Leiomyoma of uterus, unspecified (principal); N93.8 Other specified abnormal uterine and vaginal bleeding; E03.9 Hypothyroidism, unspecified; F17.290 Nicotine dependence, other tobacco product, uncomplicated; Z85.820 Personal history of malignant melanoma of skin; Z98.84 Bariatric surgery status
CPT/HCPCS: 96360; 96361; 99284; 76830; 76856; 80053; 81003; 81015; 85025